=== PATIENT | male | born 1970 | race Caucasian/White ===

== ENCOUNTER 2019-07-22 10:05 | Inpatient (IN) ==
--- NOTE | 2019-07-22 10:35 | EKG Report ---
Test Performed on : 07/22/2019 10:18:34 AM Test Reason : r/o pneu Blood Pressure : / mmHG Vent. Rate : 085 BPM Atrial Rate : 085 BPM P-R Int : 118 ms QRS Dur : 092 ms QT Int : 398 ms P-R-T Axes : 037 -38 039 degrees QTc Int : 473 ms Normal sinus rhythm. Left axis deviation Abnormal ECG No previous ECGs available Unconfirmed Result
--- NOTE | 2019-07-22 10:40 | Diag Imaging Result Doc PS360 ---
CHEST-1 VIEW - 07/22/2019 INDICATION: cough COMPARISON: None FINDINGS: The lungs are normally expanded and clear. Heart size and mediastinal contours are normal. No pneumothorax or pleural effusion. IMPRESSION: Negative exam. Electronically signed by Kameron Kirkpatrick 07/22/2019 10:38 AM
[2019-07-22 10:55] LABS: BASO# 0.05 X1000 (0.0-0.2); BASO% 0.9 % (0.0-0.8); EOS# 0.02 X1000 (0.0-0.7); EOS% 0.3 % (0.0-10.0); HEMATOCRIT 46.2 % (42.0-52.0); HEMOGLOBIN 14.8 g/dL (14.0-18.0); IMM GRAN# 0.06 X1000 (0.0-0.04); LYMPH# 1.69 X1000 (1.2-3.4); LYMPH% 29.3 % (20.5-51.1); MCH 30.6 PG (27-31); MCV 95.7 FL (81-99); MONO# 0.25 X1000 (0.11-0.59); MONO% 4.3 % (1.7-9.3); MPV 9.3 FL (7.4-10.4); NEUT% 64.2 % (42.2-75.2); PLT 226 X1000 (130-400); RBC 4.83 XMIL (4.7-6.1); RDW 13.2 % (11.5-14.5); WBC 5.77 X1000 (4.8-10.8)
[2019-07-22 11:05] LABS: AGAP 14; ALB/GLOB RATIO 1.1; ALBUMIN 3.8 g/dL (3.5-5.0); ALKALINE PHOSPHATASE 66 U/L (32-122); BUN 16 mg/dL (8-22); CALCIUM 8.6 mg/dL (8.8-10.2); CHLORIDE 105 mmol/L (98-107); COSMO 290; CREATININE 0.8 mg/dL (0.7-1.2); ESTIMATED GFR > 60; GLUCOSE 142 mg/dL (70-104); GOT 19 U/L (10-34); GPT 27 U/L (10-44); POTASSIUM 3.5 mmol/L (3.5-5.1); SODIUM 144 mmol/L (136-145); TCO2 25 mmol/L (25-35); TOTAL PROTEIN 7.3 g/dL (6.3-8.3)
[2019-07-22] MEDS ORDERED: SOLU-MEDROL IV ONE (11:50)
[2019-07-22] MEDS ORDERED: DUONEB (A & A) INH ONE (11:50)
--- NOTE | 2019-07-22 12:00 | PROVIDER DOCUMENTATION ---
HPI-General Adult - General Chief Complaint: Cough Stated Complaint: DR REFERRED TO ED Time Seen by Provider: 07/22/19 10:54 Source: patient Allergies/Adverse Reactions: Patient Allergies Allergy/AdvReac Type Severity Reaction Status Date / Time No Known Allergies Allergy Verified 07/22/19 12:24 Home Medications: Home Medication List Medication Instructions Recorded Confirmed Last Taken Type Albuterol Sulfate Inhaler 2 puff INH Q6H PRN PRN #1 inhaler 07/22/19 Unknown Rx [Ventolin Hfa] Azithromycin [Zithromax] 250 mg PO DAILY #1 pkg 07/22/19 Unknown Rx D-Methorphan/P-Epd/Bpm [Bromfed Dm 5 ml PO Q4H PRN #120 ml 07/22/19 Unknown Rx Liquid] Prednisone 20 mg PO DIRECTED #18 tab 07/22/19 Unknown Rx - History of Present Illness -Gen Adult Nature of Presenting Problems: Pt. is 49 yom that presents with c/o SOB that began yesterday. He states he went to his PCP and was sent to the ED for pneumonia. He denies any fever but does report a hard time breathing. He continues to smoke. Location of Pain/Injury: reports: none. denies: head, face, mouth, neck, chest, upper extremity, hand(s), abdomen, back, pelvis, genitalia, lower extremity, feet, upper body, lower body, generalized, other Pain Radiation: reports: no radiation. denies: arm(s), back, buttocks, chest, epigastric, feet, groin, jaw, flank (L), legs (lower), LLQ, LUQ, neck, periumbilical, flank (R), RLQ, RUQ, shoulder(s), scapula, scrotal, sternal notch, suprapubic, legs (upper), urethral, vaginal, other Quality of Pain: reports: none. denies: aching, pressure, tightness Severity: reports: moderate. denies: mild, severe Onset/Duration: reports: abrupt, 24 hours ago Timing: reports: still present. denies: gone now, intermittent, getting worse Context/Activities at Onset: reports: none. denies: light activity, moderate activity, vigorous activity, recent emotional stress, recent physical stress, recent trauma history, possible bad food, cold exposure, eating, out of country travel, rest, sleep, sexual activity, other Modifying Factors: improves with: nothing Associated Symptoms: reports: shortness of breath. denies: denies symptoms, anxiety, arm pain, back/neck pain, chest pain, constipation, cough, diaphoresis, diarrhea, dizziness, EENT symptoms, fatigue, fever/chills, genitourinary problems, headaches, heartburn, joint pain, loss of appetite, malaise, muscle aches, sinus congestion/drainage, nausea, rash, seizure, sensory/motor loss, pain with inspiration, swelling/mass in abdomen, syncope, vomiting, weakness, trouble walking, other Similar Symptoms Previously?: Yes Recently seen or treated by another doctor?: Yes Review of Systems - Adult - REVIEW OF SYSTEMS - ADULT Constitutional: reports: no symptoms reported Eyes: reports: no symptoms reported Ears, Nose, Mouth & Throat: reports: no symptoms reported Cardiovascular: reports: no symptoms reported Respiratory: reports: see HPI, shortness of breath. denies: cough, pleurisy, wheezing Gastrointestinal: reports: no symptoms reported Genitourinary: reports: no symptoms reported Musculoskeletal: reports: no symptoms reported Integumentary: reports: no symptoms reported Neurological: reports: no symptoms reported Psychiatric: reports: no symptoms reported Past History - Adult - PAST MEDICAL HISTORY-ADULT Review of Records: reports: Old Records Reviewed, Nursing Assessment Review, Medications Reviewed, Social history reviewed & non-contributory. - IMMUNIZATION STATUS Childhood Immunizations: See Nurse Assessment Flu Vaccine: See Nurse Assessment - FAMILY HISTORY Family History: reviewed, not pertinent - SOCIAL HISTORY Smoking: cigarettes, greater than 1 pack/day Provider spent 3-5 mins advising pt. on dangers of tobacco.: Discussed manners to quit use, and f/u contacts for add'l counseling. Physical Exam-General - PHYSICAL EXAM-ADULT Initial Vital Signs Reviewed: Yes - CONSTITUTIONAL General Appearance: alert, mild distress, obese. negative: anxious, slow to respond, obtunded, combative - EYES Eyes: PERRL/EOMI, pink conjunctivae - HEAD, EARS, NOSE, MOUTH & THROAT HENMT: normocephalic/atraumatic, moist mucous membranes - NECK Neck: non-tender, full range of motion, supple, normal inspection - RESPIRATORY Respiratory: rhonchi (Bilaterally). negative: crackles, rales, stridor, wheezing - CARDIOVASCULAR Cardiovascular: normal peripheral pulses, regular rate, rhythm, no edema - GASTROINTESTINAL (ABDOMEN) Abdominal Exam: normal bowel sounds, non tender, soft - LYMPHATIC Lymphatic: no adenopathy - MUSCULOSKELETAL Back Exam: normal inspection, no CVA tenderness, no vertebral tenderness Extremity: normal range of motion, non-tender, normal gait, normal inspection Peripheral Pulses: radial (R): 2+, radial (L): 2+ - SKIN Integumentary: normal color, normal turgor, warm/dry - NEUROLOGIC Neurologic: grossly normal, no motor/sensory deficits - PSYCHIATRIC Psych/Mental Status: normal mood/affect, normal thought content, normal thought process, oriented x 3. negative: anxious, paranoid, tearful Progress - PLAN OF CARE/RESULTS Progress/Plan/Lab Results: Vital Signs - 8 hr 07/22/19 10:10 Temperature 97.4 F L Pulse Rate 75 Respiratory Rate 18 Blood Pressure 154/100 O2 Sat by Pulse Oximetry 92 L Laboratory Results - last 24 hr 07/22/19 07/22/19 07/22/19 10:28 10:28 10:28 WBC 5.77 RBC 4.83 Hgb 14.8 Hct 46.2 MCV 95.7 MCH 30.6 MCHC 32.0 L RDW Std Deviation 13.2 Plt Count 226 MPV 9.3 Immature Gran % (Auto) 1.0 H Neut % (Auto) 64.2 Lymph % (Auto) 29.3 [place] % (Auto) 4.3 Eos % (Auto) 0.3 Baso % (Auto) 0.9 H Immature Gran # (Auto) 0.06 H Neut # (Auto) 3.70 Lymph # (Auto) 1.69 [place] # (Auto) 0.25 Eos # (Auto) 0.02 Baso # (Auto) 0.05 Sodium 144 Potassium 3.5 Chloride 105 Carbon Dioxide 25 Anion Gap 14 BUN 16 Creatinine 0.8 Estimated GFR/1.73 m2 > 60 BUN/Creatinine Ratio 20 Glucose 142 H Calculated Osmolality 290 Calcium 8.6 L Total Bilirubin 0.20 AST 19 ALT 27 Alkaline Phosphatase 66 Total Protein 7.3 Albumin 3.8 Globulin 3.5 Albumin/Globulin Ratio 1.1 Plasma Lactate 2.0 Orders Category Date Time Status NEWS Score 2-4:Order NEWS Lactate Series NOW Care 07/22/19 10:13 Active Use ED:PneumoniaAdultSet As Ordered Care 07/22/19 10:15 Active CHEST-1 VIEW [RAD] Stat Exams 07/22/19 10:15 Completed BLOOD CULTURE [BLDCUL] Stat Lab 07/22/19 10:28 Ordered CBC WITH ELECTRONIC DIFF [HEME] Stat Lab 07/22/19 10:28 Completed COMPREHENSIVE METABOLIC PANEL [CHEM] Stat Lab 07/22/19 10:28 Completed LACTATE, PLASMA [CHEM] Lab 07/22/19 13:15 Uncollected LACTATE, PLASMA [CHEM] Lab 07/22/19 16:15 Uncollected LACTATE, PLASMA [CHEM] Q3H Lab 07/22/19 10:28 Completed Albuterol 2.5MG/Ipratrop 0.5MG [Duoneb (A & A)] Med 07/22/19 11:50 Discontinued 6 ml INH NOW ONE Methylprednisolone Sod Succ [Solu-Medrol] Med 07/22/19 11:50 Discontinued 125 mg IV NOW ONE Aerosol Treatments Routine Oth 07/22/19 11:50 Active Aerosol Treatments Stat Oth 07/22/19 11:50 Active Pneumonia (suspected) Stat Oth 07/22/19 10:15 Ordered EKG [EKG] Stat Ther 07/22/19 10:16 Draft Laboratory Tests 07/22/19 07/22/19 07/22/19 10:28 10:28 10:28 WBC 5.77 RBC 4.83 Hgb 14.8 Hct 46.2 MCV 95.7 MCH 30.6 MCHC 32.0 L RDW Std Deviation 13.2 Plt Count 226 MPV 9.3 Immature Gran % (Auto) 1.0 H Neut % (Auto) 64.2 Lymph % (Auto) 29.3 [place] % (Auto) 4.3 Eos % (Auto) 0.3 Baso % (Auto) 0.9 H Immature Gran # (Auto) 0.06 H Neut # (Auto) 3.70 Lymph # (Auto) 1.69 [place] # (Auto) 0.25 Eos # (Auto) 0.02 Baso # (Auto) 0.05 D-Dimer, Quantitative Specimen Type Sample Site pH pCO2 pO2 HCO3 Base Excess Oxyhemoglobin ABG O2 Sat (Calculated) ABG O2 Saturation ABG Carboxyhemoglobin ABG Methemoglobin Osmar Test A-a O2 Difference Total Hemoglobin Lactate Liter Flow Blood Gas Modality FiO2 % Sodium 144 Potassium 3.5 Chloride 105 Carbon Dioxide 25 Anion Gap 14 BUN 16 Creatinine 0.8 Estimated GFR/1.73 m2 > 60 BUN/Creatinine Ratio 20 Glucose 142 H Calculated Osmolality 290 Calcium 8.6 L Total Bilirubin 0.20 AST 19 ALT 27 Alkaline Phosphatase 66 Troponin T High Sens Zeb-[id number]-Hrdujymxpnk Pept Total Protein 7.3 Albumin 3.8 Globulin 3.5 Albumin/Globulin Ratio 1.1 Plasma Lactate 2.0 07/22/19 07/22/19 07/22/19 10:28 10:28 10:28 WBC RBC Hgb Hct MCV MCH MCHC RDW Std Deviation Plt Count MPV Immature Gran % (Auto) Neut % (Auto) Lymph % (Auto) [place] % (Auto) Eos % (Auto) Baso % (Auto) Immature Gran # (Auto) Neut # (Auto) Lymph # (Auto) [place] # (Auto) Eos # (Auto) Baso # (Auto) D-Dimer, Quantitative 0.27 Specimen Type Sample Site pH pCO2 pO2 HCO3 Base Excess Oxyhemoglobin ABG O2 Sat (Calculated) ABG O2 Saturation ABG Carboxyhemoglobin ABG Methemoglobin Osmar Test A-a O2 Difference Total Hemoglobin Lactate Liter Flow Blood Gas Modality FiO2 % Sodium Potassium Chloride Carbon Dioxide Anion Gap BUN Creatinine Estimated GFR/1.73 m2 BUN/Creatinine Ratio Glucose Calculated Osmolality Calcium Total Bilirubin AST ALT Alkaline Phosphatase Troponin T High Sens 9 Ozq-P-Nbrgecnates Pept 78 Total Protein Albumin Globulin Albumin/Globulin Ratio Plasma Lactate 07/22/19 07/22/19 12:55 14:50 WBC RBC Hgb Hct MCV MCH MCHC RDW Std Deviation Plt Count MPV Immature Gran % (Auto) Neut % (Auto) Lymph % (Auto) [place] % (Auto) Eos % (Auto) Baso % (Auto) Immature Gran # (Auto) Neut # (Auto) Lymph # (Auto) [place] # (Auto) Eos # (Auto) Baso # (Auto) D-Dimer, Quantitative Specimen Type ARTERIAL Sample Site R BRACHIAL pH 7.39 pCO2 45 pO2 78 HCO3 26.2 H Base Excess 1.7 Oxyhemoglobin 95.1 ABG O2 Sat (Calculated) 20.2 ABG O2 Saturation 97.2 ABG Carboxyhemoglobin 1.40 ABG Methemoglobin 0.8 Osmar Test YES A-a O2 Difference 94.0 Total Hemoglobin 15.1 Lactate 1.20 Liter Flow 3.0 Blood Gas Modality CANNULA FiO2 % 32.0 Sodium Potassium Chloride Carbon Dioxide Anion Gap BUN Creatinine Estimated GFR/1.73 m2 BUN/Creatinine Ratio Glucose Calculated Osmolality Calcium Total Bilirubin AST ALT Alkaline Phosphatase Troponin T High Sens Gjx-N-Crhccbyxost Pept Total Protein Albumin Globulin Albumin/Globulin Ratio Plasma Lactate 1.2 Discussed results and plan of care with patient. Patient agrees with plan and verbalizes understanding. Result Diagrams: 07/22/19 10:28 07/22/19 10:28 - XRAY 1 XRAY Study: Chest [facility] - [address] [facility], [address], [place] [address] [facility] - [address] [place] [address] Department of Imaging Patient: KAYCEE SO Date: 07/22/19MR#: [id number] : 1970ADM Status: PRE ERAcct#: [id number] Age/Sex: 49/MRoom/Bed: Loc: ED Ordering Physician: Luis Fernando Parker MD Family Physician: Federico Sanchez MD Reason for Procedure: cough Signed CHEST-1 VIEW - 07/22/2019 INDICATION: cough COMPARISON: None FINDINGS: The lungs are normally expanded and clear. Heart size and mediastinal contours are normal. No pneumothorax or pleural effusion. IMPRESSION: Negative exam. Electronically signed by Kameron Kirkpatrick 07/22/2019 10:38 AM 07/22/19 1038 Interpreting Physician: Kameron Kirkpatrick MD Dictated Date/Time: 07/22/19 1038 cc: Luis Fernando Parker MD; Federico Sanchez MD) XRAY Interpretation: See note Departure - Departure Date of Disposition Decision: 07/22/19 Time of Disposition Decision: 15:25 DIAGNOSIS: Bronchitis, Tobacco use disorder Disposition: HOME 01 Certified Medical Emergency: Emergent Condition: Stable Additional Instructions: ED Follow Up Instructions: You have been treated by a care provider in the Emergency Department. These instructions are being provided to you so you can have an understanding of how to care for yourself upon discharge. Upon discharge from the Emergency Department, you are responsible for making arrangements for follow-up care by a physician of your choice. Take all prescribed medications as directed. Return to the Emergency Department immediately for any new or worsening symptoms. You may call the Physician Referral phone number at [phone] to obtain a list of Physicians who are taking new patients. Prescriptions: D-Methorphan/P-Epd/Bpm [Bromfed Dm Liquid] 5 ml PO Q4H PRN #120 ml PRN Reason: Cough Prescription Printed Prednisone 20 mg PO DIRECTED #18 tab Prescription Printed Albuterol Sulfate Inhaler [Ventolin Hfa] 2 puff INH Q6H PRN PRN #1 inhaler PRN Reason: Shortness Of Breath Prescription Printed Azithromycin [Zithromax] 250 mg PO DAILY #1 pkg Prescription Printed Referrals and Follow-Ups: Federico Sanchez MD [Primary Care Provider] - Work Excuses: Return to School/Parent Work Discharge Education: Acute Bronchitis, Adult, Tobacco Use Disorder - Critical Care Note This patient required my direct & personal management of CC.: No Attestation - Physician/ ROSEMARIE Attestation Patient care was provided by Advanced Practice Provider:: Yes Advanced Practice Provider:: Kody Prasad Advanced Practice Provider documentation review:: The Mid-level provider documentation, treatment plan and medical decision making was reviewed by the physician who agrees with all treatment and medical decision making by the MLP. The physician spent face to face time with patient:: No Advanced Practice Provider documentation review:: Supervising physician onsite and consulted in the evaluation and care of this patient. The physician did not have a face to face encounter with the patient.
--- NOTE | 2019-07-22 12:16 | EKG Report ---
Test Performed on : 07/22/2019 10:51:39 AM Test Reason : CHANGE IN RHYTHM Blood Pressure : / mmHG Vent. Rate : 094 BPM Atrial Rate : 094 BPM P-R Int : 170 ms QRS Dur : 108 ms QT Int : 396 ms P-R-T Axes : 056 -46 103 degrees QTc Int : 495 ms Normal sinus rhythm. Possible Left atrial enlargement Left anterior fascicular block Septal infarct , age undetermined T wave abnormality, consider lateral ischemia Abnormal ECG When compared with ECG of 22-JUL-2019 10:18, (Unconfirmed) Septal infarct is now present T wave inversion now evident in Lateral leads Unconfirmed Result
[2019-07-22 14:57] LABS: ALLEN TEST YES; BE 1.7 mmoll (-3.0-3.0); BLOOD TYPE ARTERIAL; HCO3-(ACT) 26.2 mmoll (20.0-26.0); METHB 0.8 % (0.0-1.5); O2(CT) 20.2 mL/dL (15.0-23.0); O2HB 95.1 % (95.0-99.0); PCO2(98.6) 45 mmHg (35-45); PO2(98.6) 78 mmHg (60-100); SAMPLE BLOOD; SAO2 97.2 % (95.0-100.0); THB 15.1 g/dL (11.5-17.4); pH(98.6) 7.39 (7.35-7.45)
[2019-07-22 14:58] LABS: MODALITY CANNULA
--- NOTE | 2019-07-22 16:17 | Diag Imaging Result Doc PS360 ---
EXAM: CT ANGIOGRM PULMONARY ARTERIES 07/22/2019 HISTORY: SOB TECHNIQUE: This exam was performed using automated exposure control, adjustment of mA or kV according to patient size, and/or use of iterative reconstruction technique. COMMENT: 3-D MIPS were performed. There are no previous studies available for comparison. There are filling defects present in the right upper lobe left upper lobe and questionably in the lower lobes. No central emboli are present. The aorta is somewhat ectatic in the ascending aorta measuring over 4.2 cm in diameter. There is no evidence of dissection. No abnormal fluid collections are present. There are some platelike opacities in the costophrenic sulcus of the right lower lobe which may be due to atelectasis. There is no evidence of consolidation. No evidence of acute disease is present in the visualized portion of the abdomen. The regional skeleton appears to be intact. IMPRESSION: Multiple small peripheral pulmonary emboli. Electronically signed by Hernando Florian 07/22/2019 4:14 PM
[2019-07-22] MEDS ORDERED: LOVENOX 1 MG/KG SUBQ ONE (16:22)
[2019-07-22] MEDS ORDERED: LOVENOX SUBQ ONE (17:00)
[2019-07-22] MEDS ORDERED: TYLENOL PO PRN (17:26)
[2019-07-22] MEDS ORDERED: TENORMIN PO ONE (17:26)
[2019-07-22] MEDS ORDERED: ZOFRAN IV PRN (17:26)
--- NOTE | 2019-07-22 18:57 | HISTORY AND PHYSICAL ---
PRIMARY CARE PROVIDER: Federico Sanchez MD CHIEF COMPLAINT: Shortness of breath. HISTORY OF PRESENT ILLNESS: Mr. Crispin Shi is a 49-year-old male with a medical history of mold exposure around 6 years ago and ever since he has had shortness of breath with bouts of bronchitis. He also has a history of hypertension, but ran out of his atenolol around 2 weeks ago, has not had it filled. He went to his primary care provider today. Apparently, he has been having shortness of breath that started on Saturday. It is nonproductive. He had a low-grade fever with it around 100 to 100.4, and they sent him here for low oxygen. When he was here, he had received 2 respiratory treatments. His oxygen would get better with respiratory treatments, then will go right back down in addition to having IV steroids that he received. He had a D-dimer that was negative, but given the symptoms of initially just the hypoxemia that could not be treated, we went ahead and sent him for a CTA of the lungs and it did show pulmonary emboli. Reviewing some old medical history on him, he had a DVT back in 2007. He also has a sister who has lupus. He had a grandmother that had what they called thick blood. They did know the name of the diagnosis, so we are going to admit, start him on Lovenox and treat him for bronchitis and evaluate for clotting disorder. PAST MEDICAL HISTORY: 1. Chronic bronchitis. 2. Hypertension. 3. Fractured skull in the past, left ankle surgery in the past. 4. Left DVT in 2007. 5. Mold exposure around 6 years ago after renovating a house and has had chronic shortness of breath ever since. SURGICAL HISTORY: 1. Skull fracture repair at the age of 9. It was in the 1970s. 2. Left ankle surgery, that was in 2007. SOCIAL HISTORY: He is a half pack per day smoker, started smoking at the age of 13. He denies alcohol or illicit drug use. He is not . He does not have children. He works for [employer]. He is very active. FAMILY HISTORY: Mother has fibromyalgia and osteoarthritis. Sister has lupus. Father had skin cancer and then he had a paternal grandmother that had thick blood. ALLERGIES: No known drug allergies. HOME MEDICATIONS: Tylenol p.r.n. He states he takes atenolol, but ran out around 2 weeks ago. He is not sure of the dose. REVIEW OF SYSTEMS: Fourteen point review of systems complete. All were negative except for those mentioned above in the HPI. PHYSICAL EXAMINATION: VITAL SIGNS: Temperature 98.4 degrees, heart rate 72, respiratory rate 19, blood pressure 138/91, O2 saturation 94% on 3 L nasal cannula. GENERAL: Mr. Crispin Shi is a 49-year-old male. He is in no acute distress. He is able to answer questions appropriately. HEENT: Atraumatic, normocephalic. Pupils equal, round, reactive to light. Extraocular movements intact. Mucous membranes are dry. NECK: Trachea midline. CARDIOVASCULAR: S1, S2. Regular rate and rhythm. No rubs, gallops, murmurs. No lower extremity edema. +2 dorsalis and radial pulses. Negative JVD or carotid bruits. Negative JVD or carotid bruits. PULMONARY: Mild expiratory wheezes noted throughout, decreased in the bases. No accessory muscle use or work of breathing noted. GASTROINTESTINAL: Abdomen soft, nontender, nondistended. Positive bowel sounds x4. EXTREMITIES: Moves all extremities equally. Full range of motion. NEUROLOGIC: A and O x3. Follows commands. Sensory is intact. SKIN: Warm, dry, intact. LABORATORY DATA: White blood cells 5000, hemoglobin 14, hematocrit 46, platelet count 226,000. D- dimer 0.27, pH 7.39, pCO2 at 45, PO2 at 78, bicarb 26, base excess 1.7, saturation 95% on 3 L nasal cannula. Lactate was 1.2. Sodium 144, potassium 3.5, BUN 16, creatinine 0.8, glucose 142, calcium 8.6, bilirubin 0.20, AST 19, ALT 27, troponin 9, proBNP is 78, albumin 3.8. Lactate serum level original 2.0. Repeat was 1.2. IMAGING: Chest x-ray negative exam. Pulmonary arteriogram shows multiple small peripheral pulmonary emboli, right upper lobe and possibly in the lower lobes. No central pulmonary emboli. EKG normal sinus rhythm, rate 85, QTc is 473. There was another repeat EKG, normal sinus rhythm, rate 94, QTc 495. ASSESSMENT/PLAN: 1. Pulmonary emboli, acute pulmonary emboli. We will start him on Lovenox 1 mg/kg q.12 hours. We will also do a hypercoagulable workup. He has had a history of a deep venous thrombosis in 2007. He has family with lupus. 2. Acute hypoxemic respiratory failure and is unable to be weaned off of oxygen. This is secondary to the pulmonary emboli, possibly from acute bronchitis as well. 3. Acute bronchitis. We will treat him with Rocephin, nebulizers and steroids. Could be leading toward future chronic obstructive pulmonary disease, but currently his pH is normal and he is not retaining CO2. 4. Hypertension. He is supposed to be on atenolol. He has been off of it for the last 2 weeks. We will get him some atenolol resumed. 5. Noncompliance. He states when he ran out of his atenolol, he did not have it refilled. 6. Hyperglycemia. Could be due to steroids, but we are going to get a hemoglobin A1c. 7. Deep venous thrombosis prophylaxis. Again, he is on weight-based Lovenox. 8. Tobacco abuse cessation discussed. We will hold off on doing a nicotine patch as that can increase risk for clots. Dictated by FRANCINE Woodward for Matteo Adames MD cc: FRANCINE Woodward MD
--- NOTE | 2019-07-22 19:37 | HISTORY AND PHYSICAL ---
ADDENDUM: Patient seen and examined by me [id number]. All of the laboratory, vital signs, and images were reviewed. The patient presented to the emergency department with a chief complaint of shortness of breath. As per the patient, he has been having shortness of breath for months. He has a history of smoking anywhere from half a pack to a pack a day for the past 30 years, and at this moment, he is wheezing bilaterally. On top of that, he has a CT angiogram of the chest that showed multiple small pulmonary emboli. I do not have any specific cause for this other than the high risk due to smoking. He is not sedentary, no recent traveling, no trauma, no surgery done recently. I had a really large conversation with this patient about smoking and blood clots. Also, probably this patient has COPD already. Upon discharge, probably this patient needs to follow up with a primary care doctor, which I believe he does not have, and/or Pulmonary Department. We are going to ask for the hypocoagulable state to see if this patient has a predisposed condition to form clots. This patient is hypoxemic, probably he needs to go home with oxygen. At this moment, we are going to start treatment with Lovenox. He has been already requested to start at 5 a.m., and we already asked for stat medication as well. Depending on the results of the hypercoagulable state, this patient needs to be seen by Hematology/Oncology because probably this patient needs to be on chronic anticoagulation. He needs to stop smoking. I agree with the rest of the nurse practitioner's assessment and plan. cc: Matteo Adames MD
[2019-07-22] MEDS: ATROVENT NEB INH SCH (19:59)
[2019-07-22] MEDS: PULMICORT INH SCH (19:59)
[2019-07-22] MEDS: XOPENEX NEB INH SCH (19:59)
[2019-07-22 20:41] LABS: HEMOGLOBIN A1C 5.7 % (4.8-6.0)
[2019-07-22 20:50] LABS: FREE T4 1.05 ng/dL (0.93-1.70); TSH 0.65 uIUmL (0.27-4.20)
[2019-07-22] MEDS: ROCEPHIN 1 GM in NS 50 ML IV SCH (23:01)
[2019-07-22] MEDS: SOLU-MEDROL IV SCH (23:02)
[2019-07-23] MEDS: XOPENEX NEB INH SCH ×6 (00:25→19:45)
[2019-07-23] MEDS: ATROVENT NEB INH SCH ×6 (00:25→19:45)
[2019-07-23] MEDS ORDERED: NS 500 ML IV ONE (00:25)
[2019-07-23 01:45] LABS: INR 0.92; PROTIME 12.4 Seconds (11.0-16.0); PTT 29.7 Seconds (22.3-41.8)
[2019-07-23 04:51] LABS: BASO# 0.01 X1000 (0.0-0.2); BASO% 0.1 % (0.0-0.8); HEMATOCRIT 42.9 % (42.0-52.0); HEMOGLOBIN 13.7 g/dL (14.0-18.0); IMM GRAN# 0.08 X1000 (0.0-0.04); IMM GRAN% 0.9 % (0.0-0.5); LYMPH# 0.85 X1000 (1.2-3.4); MCH 31.2 PG (27-31); MCHC 31.9 g/dL (33-37); MCV 97.7 FL (81-99); MONO# 0.29 X1000 (0.11-0.59); MONO% 3.4 % (1.7-9.3); MPV 9.4 FL (7.4-10.4); NEUT# 7.23 X1000 (1.4-6.5); NEUT% 85.6 % (42.2-75.2); PLT 239 X1000 (130-400); RBC 4.39 XMIL (4.7-6.1); RDW 13.2 % (11.5-14.5); WBC 8.46 X1000 (4.8-10.8)
[2019-07-23 05:10] LABS: ALB/GLOB RATIO 1.4; ALBUMIN 3.8 g/dL (3.5-5.0); ALKALINE PHOSPHATASE 63 U/L (32-122); BUN 15 mg/dL (8-22); CALCIUM 8.6 mg/dL (8.8-10.2); CREATININE 0.7 mg/dL (0.7-1.2); ESTIMATED GFR > 60; GLUCOSE 136 mg/dL (70-104); GOT 14 U/L (10-34); GPT 23 U/L (10-44); MAGNESIUM 2.1 mg/dL (1.5-2.7); TCO2 22 mmol/L (25-35); TOTAL PROTEIN 6.5 g/dL (6.3-8.3)
[2019-07-23 05:11] LABS: TOTAL BILIRUBIN < 0.15 mg/dL (0.20-1.00)
[2019-07-23 05:12] LABS: LYMPHS 8 % (21-51); SEGS 86 % (42-75)
[2019-07-23 06:15] LABS: SODIUM 142 mmol/L (136-145)
[2019-07-23 06:16] LABS: CHLORIDE 105 mmol/L (98-107); POTASSIUM 4.4 mmol/L (3.5-5.1)
[2019-07-23 06:17] LABS: AGAP 15
[2019-07-23 06:18] LABS: COSMO 286
[2019-07-23] MEDS: PULMICORT INH SCH ×2 (07:51→19:45)
[2019-07-23] MEDS: SOLU-MEDROL IV SCH ×2 (08:03→17:13)
--- NOTE | 2019-07-23 08:08 | EKG Report ---
Test Performed on : 07/23/2019 07:57:40 AM Test Reason : chest pain Blood Pressure : / mmHG Vent. Rate : 081 BPM Atrial Rate : 081 BPM P-R Int : 098 ms QRS Dur : 090 ms QT Int : 410 ms P-R-T Axes : 030 -17 008 degrees QTc Int : 476 ms Sinus rhythm. with marked sinus arrhythmia. with short AL Otherwise normal ECG When compared with ECG of 22-JUL-2019 10:51, (Unconfirmed) AL interval has decreased Criteria for Septal infarct are no longer present Non-specific change in ST segment in Lateral leads Nonspecific T wave abnormality now evident in Inferior leads T wave inversion no longer evident in Lateral leads Confirmed by Shira Oviedo MD ([id number]) on 07/23/2019 8:41:52 AM
[2019-07-23] MEDS: TENORMIN PO SCH ×2 (09:16→22:20)
--- NOTE | 2019-07-23 09:24 | Diag Imaging Result Doc PS360 ---
EXAM: CHEST-2 VIEWS 07/23/2019 HISTORY: sob TECHNIQUE: Two views the chest COMMENT: There is no evidence of acute cardiac or pulmonary disease. Compared to 07/22/2019 there has been no significant change in the appearance of the chest. There is a granuloma in the posterior left lower lobe. IMPRESSION: Stable chest. Electronically signed by Hernando Florian 07/23/2019 9:22 AM
[2019-07-23 11:50] LABS: URINE SOURCE CLEAN CATCH
[2019-07-23 11:52] LABS: BILIRUBIN URINE NEGATIVE (NEGATIVE); BLOOD URINE NEGATIVE (NEGATIVE); COLOR YELLOW; GLUCOSE URINE NEGATIVE (NEGATIVE); KETONE URINE TRACE mg/dL (NEGATIVE); LEUKOCYTES URINE NEGATIVE (NEGATIVE); NITRITE URINE NEGATIVE (NEGATIVE); PROTEIN URINE 30 mg/dL (NEGATIVE); TURBIDITY URINE CLEAR (CLEAR); UROBILINOGEN URINE NORMAL (NORMAL)
[2019-07-23 11:54] LABS: UR EPITHELIAL CELLS <10 /HPF (<10); URINE BACTERIA NEGATIVE /HPF; URINE RBC <10 /HPF (<10); URINE WBC <10 /HPF (<10)
[2019-07-23] MEDS: LOVENOX SUBQ SCH ×2 (11:58→22:20)
--- NOTE | 2019-07-23 16:08 | PROGRESS NOTE ---
DATE: 07/23/2019 SUBJECTIVE: I have seen and examined Mr. Shi today. He refers to be doing a whole lot better. He said he is shortness of breath has significantly improved, saturating about 98% to 95% on room air. OBJECTIVE: General: Mr. Shi is a 49-year-old male. He is in bed. No distress. HEENT: Mucosa is pink and moist. Anicteric. Acyanotic. Neck: Supple. Chest: Air entry is bilaterally reduced. There is still diffuse expiratory wheezing in both lung park. Cardiovascular: Regular rate and rhythm. No murmurs, no rubs, no gallops. Gastrointestinal: Abdomen soft, nontender. Bowel sounds present. Extremities: No pedal edema. Central Nervous System: Patient is awake, alert, and oriented. There is no focal deficit. LABORATORY DATA: Has been reviewed. No major abnormality dictated. IMAGING: The CTA of the lungs shows multiple small peripheral pulmonary emboli. ASSESSMENT: 1. Acute hypoxemic respiratory failure. 2. Bilateral acute pulmonary emboli. The patient is currently on Lovenox. His Doppler ultrasound of the lower extremities negative. I have discussed about anticoagulation with him. At this point, he said he would not be a be able to afford the NOAC, so we are going to start him on Coumadin. Side effects and dietary restriction as well as drug interactions have all been discussed with him. 3. Bronchospasm in a patient with history of bronchitis and chronic smoker. I think Mr. Shi has an undiagnosed chronic obstructive pulmonary disease, which is exacerbation. We are going to continue with the current bronchodilation, steroids and antibiotics. I have also consulted Pulmonary Medicine to see him. 4. Previous history of deep venous thrombosis in the left lower extremity. This was somewhere in 2018, but that was provoked. With this bilateral multifocal pulmonary embolus, I suspect Mr. Shi will probably need to be on anticoagulation for a very long time if not for life. His thrombophilic workup has been sent. He will surely need to follow up with him Hematology. cc: Ricci Pritchard MD
--- NOTE | 2019-07-23 16:34 | ECHO REPORT ---
ORDER DATE: 07/22/2019 INDICATION: Pulmonary embolus, hypertension. FINDINGS: 1. Right atrium appears normal in size. 2. Mild tricuspid regurgitation. RV systolic pressure of 36. 3. Normal RV size and systolic function. 4. No significant pulmonic insufficiency. 5. Mild left atrial enlargement with a volume index of 30. 6. No mitral valve prolapse. Mild mitral regurgitation. 7. Normal LV size, end-diastolic dimension of 5.4 cm. Normal wall thicknesses with a posterior and interventricular septal wall thickness of 0.9 and 1.0 cm respectively. Normal LV systolic function. The estimated EF is 60 to 65% with normal wall motion. 8. Aortic valve opens well. No evidence of stenosis or insufficiency. 9. Aorta appears dilated with dimension at the root of 4.2 cm and in the ascending thoracic aorta of 4.4 cm. 10. No pericardial effusion seen. 11. Normal diastolic function. 12. Normal IVC size. cc: MD Bibiana Marie CRNP
[2019-07-23] MEDS: ROCEPHIN 1 GM in NS 50 ML IV SCH (17:13)
--- NOTE | 2019-07-23 18:54 | PULMONOLOGY CONSULTATION ---
DATE: 07/23/2019 REQUESTING PROVIDER: Ricci Pritchard MD REASON FOR CONSULTATION: Suspected COPD and pulmonary emboli. HISTORY OF PRESENT ILLNESS: This is a 49-year-old, male with a medical history of chronic productive cough, chronic shortness of breath, and hypertension. He presented to the ER this Saturday from his primary physician's office with abnormal chest x-ray suggesting pneumonia. CT angiogram pulmonary arteries showed multiple small peripheral pulmonary emboli. Further workup also revealed acute bronchitis. The patient has been put on Lovenox, Rocephin, bronchodilators including Atrovent and Xopenex and IV Solu-Medrol. The patient is lying in bed with no acute distress noted at this time. He is on room air and tolerates well. He states he went to see his primary physician last Saturday with worsening productive cough and cough-related chest pain. He was sent home with antibiotics, steroid inhaler and cough syrup. Two days later, he was still coughing a lot with worsening shortness of breath. He went back to see his family his primary physician and chest x-ray in the office showed pneumonia, so he was sent to the ER directly from the office. He states he is feeling a lot better at this time. He still has some productive cough, especially after the breathing treatment. He also complaining of chest tightness and chest congestion. He states that he feels like something is stuck in there that he cannot get out. He states he is an active person most of the time. He has had been on long drive or long flight recently. He has chronic productive cough and shortness of breath, especially in the wintertime. He will develop shortness of breath by simply picking up to go upstairs. He did not have any inhaler therapy at home until this Saturday. He has no recent surgery. He is a daily smoker and smoke half a pack per day for over 30 years. He does have a history of DVT on the left lower extremity back to 2007. He also had a sister who has lupus and his grandmother has taken blood thinner for a long time secondary to thick blood. PAST MEDICAL HISTORY: 1. Chronic productive cough. 2. Chronic shortness of breath even with daily activities. 3. Hypertension. 4. History of fractured skull. 5. History of left ankle injury. 6. History of left lower extremity DVT in 2007. 7. History of mold exposure in 2013, when he remodeled his house and patient reported that his chronic shortness of breath and chronic productive cough is likely secondary to the mold exposure. PAST SURGICAL HISTORY: 1. Skull fracture repair. 2. Left ankle surgery. SOCIAL HISTORY: The patient lives at home. He has no job exposure to chemical, dust, powder. He has an indoor dog. He has smoked a half a pack per day since age of 14. He has no alcohol or illicit drug use. FAMILY HISTORY: The patient's mother has fibromyalgia and osteoarthritis. The patient's sister has lupus. The patient's father has skin cancer. The patient's paternal grandmother was on blood thinners secondary to thick blood. ALLERGIES: No known drug allergies. REVIEW OF SYSTEMS: 10-point review of systems was conducted and the pertinent is listed within the HPI, otherwise noncontributory. PHYSICAL EXAMINATION: Vital Signs: Temperature 97.5 degrees, blood pressure 123/74, pulse 84, respiratory rate 17, oxygen saturation 95% on room air. General: Obese, lying in bed with no acute distress noted. He just came back from the bathroom. He pulled his oxygen off and he tolerates very well with oxygen saturation at 95%. HEENT: Atraumatic, normocephalic. Trachea midline. Mucosa pink and moist. Pupils: Equal, round, reactive to light. Respiratory: Even and unlabored. Symmetrical excursion. Auscultation revealed prolonged expiratory phase and expiratory wheezing bilaterally with the right base worse. Cardiovascular: Regular rate and rhythm with S1, S2 appreciated. Gastrointestinal: Soft, nontender, nondistended. Normoactive bowel sounds in all 4 quadrants. Extremities: No pedal edema. No cyanosis. No clubbing. Neurologic: Alert, oriented x3. Speech fluent. Follows commands. LAB DATA: White blood cell 8.46, hemoglobin 14.7, hematocrit 42.9, platelet 239,000. Sodium 142, potassium 4.5, chloride 105, carbon dioxide 22, BUN 15, creatinine 0.7, glucose 136, plasma lactate 2.5. IMAGING DATA: Chest x-ray this morning shows stable chest with no evidence of acute cardiac or pulmonary disease. There is a granuloma in the posterior left lower lobe. ASSESSMENT: This is a 49-year-old, male with a medical history of a chronic productive cough, chronic shortness of breath, hypertension, and history of left lower extremity deep venous thrombosis. He has been admitted to the medical floor since 07/22/2019 with a pulmonary emboli and acute bronchitis. 1. Acute hypoxemic respiratory failure, resolved. The patient tolerates room air well at this time. 2. Multiple small peripheral pulmonary emboli. 3. Acute bronchitis with chronic productive cough and chronic shortness of breath. 4. Ongoing tobacco use. It is highly possible patient that patient has a COPD in the background of daily tobacco use and chronic productive cough and chronic shortness of breath. PLAN: 1. Continue supplemental oxygen as needed. 2. Antibiotic Rocephin has been ordered. 3. Bronchodilators including Xopenex and Atrovent has been ordered. 4. IV Solu-Medrol ordered. 5. P.o. Coumadin has been ordered today. The patient also on SQ Lovenox. 6. We start mucomyst. 7. Recommend outpatient PFT and outpatient manager strategy follow up. 8. Tobacco cessation education. The patient stated that he is ready to quit smoking. 9. Further recommendations pending hospital course. Thank you for the courtesy of this consult. Dr. Sanchez did the examination, evaluation, management and orders. FRANCINE did the dictation for Dr. Sanchez according to his direction. Dictated by FRANCINE Grey for Deangelo Sanchez MD cc: FRANCINE Grey MD [facility]
[2019-07-23] MEDS: MUCOMYST 20% INH SCH (19:45)
[2019-07-23] MEDS ORDERED: COUMADIN PO SCH (21:00)
[2019-07-23] MEDS ORDERED: RESTORIL PO ONE (23:32)
[2019-07-24] MEDS: SOLU-MEDROL IV SCH ×2 (00:02→08:57)
[2019-07-24] MEDS: XOPENEX NEB INH SCH ×4 (00:21→11:14)
[2019-07-24] MEDS: ATROVENT NEB INH SCH ×4 (00:21→11:14)
[2019-07-24 07:44] VITALS: BP 113/79
[2019-07-24] MEDS: MUCOMYST 20% INH SCH (07:56)
[2019-07-24 08:10] LABS: AGAP 12; ALB/GLOB RATIO 1.3; ALBUMIN 3.6 g/dL (3.5-5.0); ALKALINE PHOSPHATASE 66 U/L (32-122); BUN 17 mg/dL (8-22); CALCIUM 8.4 mg/dL (8.8-10.2); CHLORIDE 106 mmol/L (98-107); COSMO 288; CREATININE 0.6 mg/dL (0.7-1.2); ESTIMATED GFR > 60; GLUCOSE 127 mg/dL (70-104); GOT 14 U/L (10-34); GPT 25 U/L (10-44); MAGNESIUM 2.3 mg/dL (1.5-2.7); SODIUM 143 mmol/L (136-145); TCO2 25 mmol/L (25-35); TOTAL BILIRUBIN < 0.15 mg/dL (0.20-1.00); TOTAL PROTEIN 6.4 g/dL (6.3-8.3)
[2019-07-24] MEDS: PULMICORT INH SCH (08:12)
[2019-07-24 08:16] LABS: BASO# 0.03 X1000 (0.0-0.2); BASO% 0.2 % (0.0-0.8); HEMATOCRIT 43.3 % (42.0-52.0); HEMOGLOBIN 13.7 g/dL (14.0-18.0); IMM GRAN# 0.28 X1000 (0.0-0.04); IMM GRAN% 1.5 % (0.0-0.5); LYMPH# 1.05 X1000 (1.2-3.4); LYMPH% 5.6 % (20.5-51.1); MCH 30.7 PG (27-31); MCHC 31.6 g/dL (33-37); MCV 97.1 FL (81-99); MONO# 0.88 X1000 (0.11-0.59); MONO% 4.7 % (1.7-9.3); MPV 9.6 FL (7.4-10.4); NEUT# 16.54 X1000 (1.4-6.5); PLT 286 X1000 (130-400); RBC 4.46 XMIL (4.7-6.1); RDW 13.2 % (11.5-14.5); WBC 18.78 X1000 (4.8-10.8)
[2019-07-24] MEDS: TENORMIN PO SCH (08:57)
[2019-07-24 09:36] LABS: BANDS 6 % (0-1); LYMPHS 6 % (21-51); SEGS 84 % (42-75)
[2019-07-24] MEDS: LOVENOX SUBQ SCH (12:26)
[2019-07-24] MEDS ORDERED: PNEUMOVAX 23 IM ONE (14:00)
[2019-07-24] MEDS ORDERED: FLU VACCINE IM ONE (14:00)
--- NOTE | 2019-07-24 17:20 | Extremity Venous Study ---
PROCEDURE NAME: Venous U/S Bilateral Legs - 07/22/2019 REQUESTING PHYSICIAN: Bibiana Rosales MD INDICATIONS: PE.. Search for clot. FINDINGS: The deep and superficial veins bilateral lower extremities visualized along their course. All vessels compressible with forward flow and no evidence intraluminal thrombus. SUMMARY: No deep or superficial venous thrombosis in bilateral lower extremities. cc: MD Bibiana Moore CRNP MTDD
--- NOTE | 2019-07-24 20:02 | PULMONOLOGY PROGRESS NOTE ---
DATE: 07/24/2019 SUBJECTIVE: Mr. Shi is sitting up in the bedside chair watching TV. He has no complaints. OBJECTIVE: Vital signs: Blood pressure is 113/79 with a heart rate of 90, respirations are 18, temperature is 97.5 degrees with O2 saturations that are 94 to 98 percent on 3 L nasal cannula. Eyes: Pupils are equal, round, react to light. EOMs are intact sclerae anicteric. HEENT: Head is normocephalic, atraumatic. Mucous membranes are moist. Neck: Is supple with trachea midline. Cardiovascular: Regular rate and rhythm S1 and S2 appreciated. He has no lower extremity edema. Calves are nontender bilateral with peripheral pulses palpable x4 extremities. Pulmonary: Breath sounds with expiratory wheezes scattered throughout. Chest rises and falls symmetric with respiration. Chest wall is nontender to palpation. Gastrointestinal: Abdomen is soft, nontender, nondistended with bowel sounds in all 4 quadrants. Neurologic: He is alert and oriented x3. LABS: WBC is 18 with a hemoglobin of 13.7, hematocrit 43.3, and platelets of 286,000. Sodium 143, potassium 4, BUN 17, creatinine 0.6 with a glucose of 127. Blood cultures revealed no growth after 48 hours. IMPRESSION: This is a 49-year-old gentleman with 1. Acute hypoxemic respiratory failure, resolved. The patient is currently on nasal cannula. He states that he has worn oxygen continuously since being admitted. We will remove oxygen now. Check order home O2 eval sitting and walking per Respiratory Therapy. 2. Multiple small peripheral pulmonary emboli. He is currently on Lovenox with as well as warfarin. Recommend continue following INRs daily 3. Acute bronchitis with chronic productive cough and chronic shortness of breath in a patient who continues to smoke. It is very likely that Mr. Shi has undiagnosed COPD with this being an exacerbation. We will continue with bronchodilators, steroids and antibiotics. I did discuss tobacco cessation with the patient. He does state that he is ready to quit smoking. He has been given written materials by the nursing staff. It was recommended per Dr. Sanchez that the patient follow up with pulmonology on an outpatient basis for PFTs. Appointment will be scheduled on discharge. Dictated by FRANCINE Holden for Esau Rangel MD cc: AnaliFRANCINE Simon MD
--- NOTE | 2019-07-24 22:08 | DISCHARGE SUMMARY ---
ADMISSION DATE: 07/22/2019 DISCHARGE DATE: 07/24/2019 DISPOSITION: Home. FOLLOW-UP: 1. Dr. Kameron Sanchez. 2. Dr. Sanchez. CONSULTATION DURING THIS ADMISSION: Pulmonary Medicine was consulted. Patient was seen by Dr. Sanchez. INVASIVE PROCEDURES DONE DURING THIS ADMISSION: None. IMAGING STUDIES OF SIGNIFICANCE: 1. Chest x-ray showed was negative. 2. A CT scan of the chest show multiple small peripheral pulmonary emboli. 3. Echocardiogram showed ejection fraction of 65% with normal wall motion. 4. A repeat chest x-ray shows stable. ADMISSION DIAGNOSIS: 1. Pulmonary emboli. 2. Acute hypoxemic respiratory failure. 3. Acute bronchitis. 4. Hypertension. 5. Hyperglycemia. DIAGNOSIS AT THE TIME OF DISCHARGE: 1. Acute hypoxemic respiratory failure on presentation, improved. 2. Bilateral acute pulmonary peripheral emboli. 3. Bronchospasm, most likely due to underlying undiagnosed COPD in exacerbation. 4. History of DVT in the left lower extremity in 2018. 5. Tobacco use and abuse prior to hospitalization. DISCHARGE MEDICATIONS: 1. Prednisone 20 mg p.o. daily. 2. Amoxicillin 875 p.o. q. 12. 3. Lovenox 90 subcutaneously q. 12 for 5 days. 4. Coumadin 10 mg p.o. at bedtime for 2 days and then repeat the INR and follow up further recommend instructions from PCP. 5. Albuterol inhaler. 6. Spiriva 1 puff daily. FOLLOW-UP: 1. Dr. Sanchez. 2. Dr. Sanchez. 3. Dr. Carreno. PRESENTING COMPLAINT: Shortness of breath. HISTORY OF PRESENT COMPLAINT: Mr. Shi is a 49-year-old male who has history of hypertension, chronic bronchitis, came to the emergency room because of shortness of breath and some low-grade fever. Upon presentation, he was found to be hypoxemic with O2 saturation of 92%. He was started on supplemental oxygen, which improved that. Imaging studies revealed multiple pulmonary emboli distally. Mr. Shi was admitted for further medical care. HOSPITAL COURSE: Mr. Shi was admitted to the medical floor. He was started on Lovenox. He was also found to be wheezing, so he was started on bronchodilation therapy, steroids, and antibiotics. Mr. Shi has a history of more than [id number] history, so we suspected that he has an underlying COPD which has not been diagnosed. Pulmonary Medicine was consulted. He was seen by Dr. Sanchez. He will follow up with him accordingly. This morning Mr. Shi refers to be feeling a whole lot better. Wheezing has significantly improved. Echocardiogram has been reviewed. We think he is stable for discharge. He will need to follow up with Pulmonary Medicine. Mr. Shi stated very categorically that he will not be able to afford the new oral anticoagulants, so he is going to bridge Lovenox with Coumadin. He is going to take 10 mg of Coumadin tonight and tomorrow night and then repeat his INR on Saturday and his PCP will decide what dose and regimen he is going to go on. All the discharge instructions have been discussed with him. He voiced understanding. More specifically, we stressed the utmost need for tobacco cessation. TIME SPENT: For discharge is 38 minutes. cc: Ricci Pritchard MD
== END 2019-07-24 14:40 | disposition home or self-care (01) | DRG 175 ==
LOC: ED 10:05 → 3N 18:49 → SUATTDRO 18:49
PROVIDERS: ATTEND Internal Medicine